=== PATIENT | male | born 1950 | race African-American/Black ===

== ENCOUNTER 2017-05-21 08:16 | Inpatient (IN) ==
[2017-05-21 08:56] LABS: Basophils % 0.1 % (0.0-0.8); Hematocrit 25.1 VOL% (42.0-52.0); Hemoglobin 8.4 GM/DL (14.0-18.0); Immature Granulocytes % 6.4 %; Immature Granulocytes Absolute 0.62 #; Lymphocytes # 0.3 10*3/uL (1.4-4.0); Lymphocytes % 3.2 % (21.2-54.2); Mean Corpuscular HGB Conc 33.5 GM/DL (32-36); Mean Corpuscular Hemoglobin 26 PG (27-34); Mean Corpuscular Volume 78.7 FL (87-102); Monocytes # 0.2 10*3/uL (0.11-0.8); Monocytes % 2.1 % (1.7-12.7); Neutrophils # 8.6 10*3/uL (1.4-7.4); Neutrophils % 88.2 % (38.7-73.9); Platelet Count 54 T/CUMM (130-400); Red Blood Count 3.19 MC/CUMM (3.8-5.5); Red Cell Distribution Width 16.7 % (9.3-17.3); White Blood Count 9.7 T/CUMM (4-12)
[2017-05-21] MEDS ORDERED: GENTAMICIN INJ 120 MG in PREMIX 1 EACH IV SCH (09:00)
[2017-05-21 09:23] LABS: Lactic Acid 2.5 MMOL/L (0.4-2.0)
[2017-05-21 09:28] LABS: Alanine Aminotransferase 11 U/L (16-61); Albumin 2.8 G/DL (3.4-5.0); Alkaline Phosphatase 69 U/L (45-117); Aspartate Amino Transferase 26 U/L (0-37); Blood Urea Nitrogen 34 MG/DL (7-18); Calcium 8.2 MG/DL (8.5-10.1); Glucose 117 MG/DL (74-106); Potassium 4.1 MMOL/L (3.5-5.1); Sodium 136 MMOL/L (136-145); Total Protein 7.2 G/DL (6.4-8.3)
[2017-05-21] MEDS ORDERED: VANCOMYCIN INJ 1,500 MG in SODIUM CHLORIDE 0.9% 500 ML IV SCH (09:30)
[2017-05-21 09:35] LABS: Band Neutrophils 2 % (0-10); Hypochromasia 1+; Lymphocytes 2 % (20-55); Microcytosis 1+; Ovalocytes Slight; Segmented Neutrophils 94 % (50-85); Total Cells Counted 100
[2017-05-21 09:36] LABS: Platelet Estimate Decreased; Tear Drop Cells Slight
[2017-05-21 10:17] LABS: INR 1.3; PT Patient Result 13.7 SECS
[2017-05-21 10:37] LABS: Apearance,Urine Slightly Hazy (Clear); Bacteria,Urine Occasional /HPF (Few); Bilirubin,Urine Negative (Negative); Blood, Urine Large mg/dL (Negative); Glucose,Urine (UA) Negative (Negative); Ketones,Urine 5 mg/dL (Negative); Mucus,Urine Occasional /LPF (Occasional); Nitrite,Urine Negative (Negative); Protein,Urine >=500 MG/DL; RBC,Urine 975 /HPF (0-4); Squamous Epithelial Cell,Urine Occasional /HPF (0-10); Urine Color Yellow (Yellow); Urine Specific Gravity 1.017 (1.001-1.035); WBC,Urine 49 /HPF (0-6)
[2017-05-21] MEDS ORDERED: ONDANSETRON 4 MG/2 ML VIAL IV PRN (10:56)
[2017-05-21] MEDS ORDERED: VANCOMYCIN INJ 750 MG in SODIUM CHLORIDE 0.9% 250 ML IV PRN (12:53)
[2017-05-21] MEDS: RIFAXIMIN 550 MG TABLET PO SCH (20:52)
[2017-05-21] MEDS: TACROLIMUS 0.5 MG CAPSULE PO SCH (20:53)
[2017-05-21] MEDS: DOXAZOSIN 4 MG TABLET PO SCH (20:53)
[2017-05-21] MEDS: MYCOPHENOLATE MOFETIL 250 MG CAPSULE PO SCH (20:53)
[2017-05-21] MEDS: METOPROLOL SUCCINATE XL 25 MG TABLET PO SCH (20:53)
[2017-05-21] MEDS ORDERED: VANCOMYCIN INJ 1,500 MG in SODIUM CHLORIDE 0.9% 250 ML IV SCH (21:00)
[2017-05-21] MEDS: ZALEPLON 5 MG CAPSULE PO PRN (22:03)
[2017-05-22 06:27] LABS: Basophils % 0.1 % (0.0-0.8); Eosinophils % 0.5 % (0.00-10.9); Hematocrit 21.4 VOL% (42.0-52.0); Hemoglobin 6.9 GM/DL (14.0-18.0); Immature Granulocytes % 4.1 %; Immature Granulocytes Absolute 0.33 #; Lymphocytes # 0.4 10*3/uL (1.4-4.0); Lymphocytes % 4.8 % (21.2-54.2); Mean Corpuscular HGB Conc 32.2 GM/DL (32-36); Mean Corpuscular Hemoglobin 26 PG (27-34); Mean Corpuscular Volume 81.1 FL (87-102); Monocytes # 0.6 10*3/uL (0.11-0.8); Monocytes % 7.8 % (1.7-12.7); Neutrophils # 6.7 10*3/uL (1.4-7.4); Neutrophils % 82.7 % (38.7-73.9); Platelet Count 61 T/CUMM (130-400); Red Blood Count 2.64 MC/CUMM (3.8-5.5); White Blood Count 8.1 T/CUMM (4-12)
[2017-05-22 06:35] LABS: INR 1.2; PT Patient Result 12.7 SECS; Partial Thromboplastin Time 38.2 SECS (0-40)
[2017-05-22 06:56] LABS: Calcium 7.9 MG/DL (8.5-10.1); Osmolality,Calculated 283.8 MOS/KG (273-304); Potassium 4.5 MMOL/L (3.5-5.1)
[2017-05-22 07:02] LABS: Hypochromasia 1+; Lymphocytes 5 % (20-55); Microcytosis 1+; Ovalocytes Slight; Segmented Neutrophils 87 % (50-85); Target Cells Slight; Total Cells Counted 100
[2017-05-22 07:03] LABS: Platelet Estimate Decreased
[2017-05-22] MEDS ORDERED: SODIUM CHLORIDE 0.9% 1,000 ML IV PRN ×2 (07:30→09:07)
[2017-05-22] MEDS: TACROLIMUS 0.5 MG CAPSULE PO SCH ×2 (09:56→20:38)
[2017-05-22] MEDS: ACETAMINOPHEN 325 MG TABLET PO PRN (09:57)
[2017-05-22] MEDS: MYCOPHENOLATE MOFETIL 250 MG CAPSULE PO SCH ×2 (09:57→20:38)
[2017-05-22] MEDS: PANTOPRAZOLE 40 MG TABLET PO SCH (09:57)
[2017-05-22] MEDS: DOXAZOSIN 4 MG TABLET PO SCH ×2 (09:58→20:38)
[2017-05-22] MEDS: MULTIVITAMIN (CENTRUM) TABLET PO SCH (09:58)
[2017-05-22] MEDS: RIFAXIMIN 550 MG TABLET PO SCH ×2 (09:58→20:38)
[2017-05-22] MEDS: METOPROLOL SUCCINATE XL 50 MG TABLET PO SCH (09:58)
[2017-05-22] MEDS: LAMIVUDINE 150 MG PO SCH (10:00)
[2017-05-22] MEDS: METOPROLOL SUCCINATE XL 25 MG TABLET PO SCH (20:38)
[2017-05-22] MEDS: ZALEPLON 5 MG CAPSULE PO PRN (20:38)
[2017-05-23 05:48] LABS: Basophils % 0.1 % (0.0-0.8); Eosinophils % 0.4 % (0.00-10.9); Hematocrit 24.6 VOL% (42.0-52.0); Hemoglobin 8.2 GM/DL (14.0-18.0); Immature Granulocytes % 4.7 %; Immature Granulocytes Absolute 0.36 #; Lymphocytes # 0.4 10*3/uL (1.4-4.0); Lymphocytes % 5.2 % (21.2-54.2); Mean Corpuscular HGB Conc 33.3 GM/DL (32-36); Mean Corpuscular Hemoglobin 27 PG (27-34); Mean Corpuscular Volume 81.7 FL (87-102); Monocytes # 0.6 10*3/uL (0.11-0.8); Monocytes % 7.7 % (1.7-12.7); Neutrophils # 6.3 10*3/uL (1.4-7.4); Neutrophils % 81.9 % (38.7-73.9); Platelet Count 59 T/CUMM (130-400); Red Blood Count 3.01 MC/CUMM (3.8-5.5); Red Cell Distribution Width 16.1 % (9.3-17.3); White Blood Count 7.7 T/CUMM (4-12)
[2017-05-23 06:05] LABS: Calcium 7.6 MG/DL (8.5-10.1); Osmolality,Calculated 280.2 MOS/KG (273-304); Potassium 4.3 MMOL/L (3.5-5.1)
[2017-05-23 06:08] LABS: Albumin 2.6 G/DL (3.4-5.0); Bilirubin,Direct 0.29 MG/DL (0.0-0.20); Bilirubin,Indirect 0.9 MG/DL (0.0-1.0); Bilirubin,Total 1.2 MG/DL (0.2-1.0); Total Protein 5.8 G/DL (6.4-8.3)
[2017-05-23 07:06] LABS: Giant Platelets Few; Hypochromasia 1+; Lymphocytes 4 % (20-55); Microcytosis Slight; Ovalocytes Slight; Platelet Estimate Decreased; Segmented Neutrophils 91 % (50-85); Total Cells Counted 100
[2017-05-23] MEDS: MYCOPHENOLATE MOFETIL 250 MG CAPSULE PO SCH ×2 (08:35→21:27)
[2017-05-23] MEDS: LAMIVUDINE 150 MG PO SCH (08:36)
[2017-05-23] MEDS: MULTIVITAMIN (CENTRUM) TABLET PO SCH (08:36)
[2017-05-23] MEDS: PANTOPRAZOLE 40 MG TABLET PO SCH (08:36)
[2017-05-23] MEDS: DOXAZOSIN 4 MG TABLET PO SCH ×2 (08:36→21:27)
[2017-05-23] MEDS: TACROLIMUS 0.5 MG CAPSULE PO SCH ×2 (08:36→21:27)
[2017-05-23] MEDS: RIFAXIMIN 550 MG TABLET PO SCH ×2 (08:36→21:27)
[2017-05-23] MEDS: METOPROLOL SUCCINATE XL 50 MG TABLET PO SCH (08:36)
[2017-05-23] MEDS: ACETAMINOPHEN 325 MG TABLET PO PRN (08:41)
[2017-05-23 16:24] LABS: Basophils % 0.1 % (0.0-0.8); Eosinophils % 0.4 % (0.00-10.9); Hematocrit 27.7 VOL% (42.0-52.0); Hemoglobin 9.4 GM/DL (14.0-18.0); Immature Granulocytes % 6.2 %; Immature Granulocytes Absolute 0.49 #; Lymphocytes # 0.4 10*3/uL (1.4-4.0); Mean Corpuscular HGB Conc 33.9 GM/DL (32-36); Mean Corpuscular Hemoglobin 28 PG (27-34); Mean Corpuscular Volume 81.2 FL (87-102); Monocytes # 0.6 10*3/uL (0.11-0.8); Monocytes % 7.4 % (1.7-12.7); Neutrophils # 6.4 10*3/uL (1.4-7.4); Neutrophils % 80.9 % (38.7-73.9); Platelet Count 64 T/CUMM (130-400); Red Blood Count 3.41 MC/CUMM (3.8-5.5); Red Cell Distribution Width 16.4 % (9.3-17.3); White Blood Count 7.9 T/CUMM (4-12)
[2017-05-23 17:14] LABS: Band Neutrophils 3 % (0-10); Lymphocytes 5 % (20-55); Myelocytes 1 %; Segmented Neutrophils 88 % (50-85); Total Cells Counted 100
[2017-05-23 17:15] LABS: Anisocytosis 1+; Platelet Estimate Decreased; Tear Drop Cells Few
[2017-05-23] MEDS ORDERED: PROMETHAZINE 25 MG/1 ML VIAL IM ONE (18:56)
[2017-05-23] MEDS ORDERED: MEPERIDINE 50 MG/1 ML VIAL IM ONE (18:56)
[2017-05-23] MEDS: ZALEPLON 5 MG CAPSULE PO PRN (21:27)
[2017-05-23] MEDS: METOPROLOL SUCCINATE XL 25 MG TABLET PO SCH (21:27)
[2017-05-24 06:39] LABS: Basophils % 0.2 % (0.0-0.8); Eosinophils # 0.1 10*3/uL (0.0-0.87); Eosinophils % 1.2 % (0.00-10.9); Hematocrit 25.2 VOL% (42.0-52.0); Hemoglobin 8.3 GM/DL (14.0-18.0); Immature Granulocytes % 4.5 %; Immature Granulocytes Absolute 0.26 #; Lymphocytes # 0.4 10*3/uL (1.4-4.0); Lymphocytes % 7.5 % (21.2-54.2); Mean Corpuscular HGB Conc 32.9 GM/DL (32-36); Mean Corpuscular Hemoglobin 27 PG (27-34); Mean Corpuscular Volume 81.3 FL (87-102); Monocytes # 0.6 10*3/uL (0.11-0.8); Monocytes % 9.4 % (1.7-12.7); Neutrophils # 4.5 10*3/uL (1.4-7.4); Neutrophils % 77.2 % (38.7-73.9); Platelet Count 65 T/CUMM (130-400); Red Cell Distribution Width 16.3 % (9.3-17.3); White Blood Count 5.8 T/CUMM (4-12)
[2017-05-24 07:05] LABS: Calcium 7.8 MG/DL (8.5-10.1); Potassium 4.1 MMOL/L (3.5-5.1)
[2017-05-24 07:06] LABS: Albumin 2.7 G/DL (3.4-5.0); Bilirubin,Total 0.9 MG/DL (0.2-1.0); Calcium 7.8 MG/DL (8.5-10.1); Magnesium 2.5 MG/DL (1.8-2.4); Osmolality,Calculated 284.1 MOS/KG (273-304); Potassium 4.1 MMOL/L (3.5-5.1); Total Protein 5.9 G/DL (6.4-8.3)
[2017-05-24] MEDS ORDERED: cefTAZidime 1,000 MG in SYRINGE 1 EACH IV SCH (08:00)
[2017-05-24] MEDS: LAMIVUDINE 150 MG PO SCH (08:31)
[2017-05-24] MEDS: DOXAZOSIN 4 MG TABLET PO SCH ×2 (08:31→20:08)
[2017-05-24] MEDS: TACROLIMUS 0.5 MG CAPSULE PO SCH ×2 (08:32→20:08)
[2017-05-24] MEDS: RIFAXIMIN 550 MG TABLET PO SCH ×2 (08:32→20:09)
[2017-05-24] MEDS: MYCOPHENOLATE MOFETIL 250 MG CAPSULE PO SCH ×2 (08:32→20:08)
[2017-05-24] MEDS: MULTIVITAMIN (CENTRUM) TABLET PO SCH (08:33)
[2017-05-24] MEDS: PANTOPRAZOLE 40 MG TABLET PO SCH (08:33)
[2017-05-24] MEDS: METOPROLOL SUCCINATE XL 50 MG TABLET PO SCH (08:33)
[2017-05-24] MEDS: ALBUTEROL 2.5 MG/3 ML NEB RESP TX PRN (08:53)
[2017-05-24] MEDS ORDERED: HEPARIN 10,000 UNIT/10 ML VIAL IV PRN (10:52)
[2017-05-24] MEDS ORDERED: GENTAMICIN INJ 100 MG in PREMIX 1 EACH IV PRN (16:00)
[2017-05-24] MEDS: ACETAMINOPHEN 325 MG TABLET PO PRN (18:03)
[2017-05-24] MEDS: ZALEPLON 5 MG CAPSULE PO PRN (20:08)
[2017-05-24] MEDS: METOPROLOL SUCCINATE XL 25 MG TABLET PO SCH (20:08)
[2017-05-24] MEDS: METHOCARBAMOL 500 MG TABLET PO PRN (20:09)
[2017-05-25] MEDS: PANTOPRAZOLE 40 MG TABLET PO SCH (08:05)
[2017-05-25] MEDS: DOXAZOSIN 4 MG TABLET PO SCH ×2 (08:05→21:25)
[2017-05-25] MEDS: MULTIVITAMIN (CENTRUM) TABLET PO SCH (08:05)
[2017-05-25] MEDS: METHOCARBAMOL 500 MG TABLET PO PRN ×2 (08:05→17:45)
[2017-05-25] MEDS: MYCOPHENOLATE MOFETIL 250 MG CAPSULE PO SCH ×2 (08:06→21:22)
[2017-05-25] MEDS: TACROLIMUS 0.5 MG CAPSULE PO SCH ×2 (08:06→21:22)
[2017-05-25] MEDS: METOPROLOL SUCCINATE XL 50 MG TABLET PO SCH (08:06)
[2017-05-25] MEDS: RIFAXIMIN 550 MG TABLET PO SCH ×2 (08:06→21:25)
[2017-05-25] MEDS: LAMIVUDINE 150 MG PO SCH (09:08)
[2017-05-25] MEDS ORDERED: cefTRIAXone 1,000 MG in SODIUM CHLORIDE 0.9% 100 ML IV SCH (09:30)
[2017-05-25] MEDS: cefTRIAXone 2,000 MG in SYRINGE 1 EACH IV SCH (14:17)
[2017-05-25] MEDS: ZALEPLON 5 MG CAPSULE PO SCH (21:26)
[2017-05-25] MEDS: METOPROLOL SUCCINATE XL 25 MG TABLET PO SCH (21:26)
[2017-05-26] MEDS: METHOCARBAMOL 500 MG TABLET PO PRN ×2 (04:39→17:28)
[2017-05-26] MEDS: ALBUTEROL 2.5 MG/3 ML NEB RESP TX PRN (04:42)
[2017-05-26 05:39] LABS: Basophils % 0.2 % (0.0-0.8); Eosinophils # 0.1 10*3/uL (0.0-0.87); Eosinophils % 2.4 % (0.00-10.9); Hematocrit 24.9 VOL% (42.0-52.0); Hemoglobin 8.3 GM/DL (14.0-18.0); Immature Granulocytes % 4.5 %; Immature Granulocytes Absolute 0.21 #; Lymphocytes # 0.5 10*3/uL (1.4-4.0); Lymphocytes % 9.7 % (21.2-54.2); Mean Corpuscular HGB Conc 33.3 GM/DL (32-36); Mean Corpuscular Hemoglobin 27 PG (27-34); Mean Corpuscular Volume 80.3 FL (87-102); Monocytes # 0.5 10*3/uL (0.11-0.8); Monocytes % 10.5 % (1.7-12.7); Neutrophils # 3.4 10*3/uL (1.4-7.4); Neutrophils % 72.7 % (38.7-73.9); Platelet Count 73 T/CUMM (130-400); Red Cell Distribution Width 16.7 % (9.3-17.3); White Blood Count 4.7 T/CUMM (4-12)
[2017-05-26 06:01] LABS: Hypochromasia 1+; Platelet Estimate Decreased
[2017-05-26 06:02] LABS: Giant Platelets Few; Microcytosis Slight; Ovalocytes Slight
[2017-05-26 06:53] LABS: Albumin 2.5 G/DL (3.4-5.0); Bilirubin,Total 0.6 MG/DL (0.2-1.0); Calcium 7.7 MG/DL (8.5-10.1)
[2017-05-26 06:54] LABS: Magnesium 2.3 MG/DL (1.8-2.4); Osmolality,Calculated 283.7 MOS/KG (273-304); Potassium 4.3 MMOL/L (3.5-5.1)
[2017-05-26] MEDS: LAMIVUDINE 150 MG PO SCH (08:51)
[2017-05-26] MEDS: DOXAZOSIN 4 MG TABLET PO SCH ×2 (08:52→21:12)
[2017-05-26] MEDS: MYCOPHENOLATE MOFETIL 250 MG CAPSULE PO SCH ×2 (08:53→21:11)
[2017-05-26] MEDS: TACROLIMUS 0.5 MG CAPSULE PO SCH ×2 (08:53→21:10)
[2017-05-26] MEDS: MULTIVITAMIN (CENTRUM) TABLET PO SCH (08:53)
[2017-05-26] MEDS: METOPROLOL SUCCINATE XL 50 MG TABLET PO SCH (08:54)
[2017-05-26] MEDS: PANTOPRAZOLE 40 MG TABLET PO SCH (08:54)
[2017-05-26] MEDS: RIFAXIMIN 550 MG TABLET PO SCH ×2 (08:54→21:11)
[2017-05-26] MEDS: cefTRIAXone 2,000 MG in SYRINGE 1 EACH IV SCH (12:13)
[2017-05-26] MEDS: ZALEPLON 5 MG CAPSULE PO SCH (21:11)
[2017-05-26] MEDS: METOPROLOL SUCCINATE XL 25 MG TABLET PO SCH (21:12)
[2017-05-27] MEDS: METHOCARBAMOL 500 MG TABLET PO PRN ×3 (04:29→17:47)
[2017-05-27 06:50] LABS: Basophils % 0.2 % (0.0-0.8); Eosinophils # 0.1 10*3/uL (0.0-0.87); Eosinophils % 1.4 % (0.00-10.9); Hematocrit 27.7 VOL% (42.0-52.0); Hemoglobin 9.2 GM/DL (14.0-18.0); Immature Granulocytes % 4.2 %; Immature Granulocytes Absolute 0.18 #; Lymphocytes # 0.4 10*3/uL (1.4-4.0); Lymphocytes % 9.5 % (21.2-54.2); Mean Corpuscular HGB Conc 33.2 GM/DL (32-36); Mean Corpuscular Hemoglobin 27 PG (27-34); Mean Corpuscular Volume 82.4 FL (87-102); Monocytes # 0.4 10*3/uL (0.11-0.8); Monocytes % 8.6 % (1.7-12.7); Neutrophils # 3.3 10*3/uL (1.4-7.4); Neutrophils % 76.1 % (38.7-73.9); Platelet Count 88 T/CUMM (130-400); Red Blood Count 3.36 MC/CUMM (3.8-5.5); White Blood Count 4.3 T/CUMM (4-12)
[2017-05-27 07:15] LABS: Giant Platelets Few; Hypochromasia 1+; Lymphocytes 6 % (20-55); Microcytosis Slight; Ovalocytes Slight; Platelet Estimate Decreased; Segmented Neutrophils 81 % (50-85); Total Cells Counted 100
[2017-05-27 07:23] LABS: Albumin 2.8 G/DL (3.4-5.0); Bilirubin,Total 0.7 MG/DL (0.2-1.0); Calcium 8.2 MG/DL (8.5-10.1); Magnesium 2.3 MG/DL (1.8-2.4); Osmolality,Calculated 280.5 MOS/KG (273-304); Total Protein 6.4 G/DL (6.4-8.3)
[2017-05-27] MEDS: DOXAZOSIN 4 MG TABLET PO SCH (08:33)
[2017-05-27] MEDS: TACROLIMUS 0.5 MG CAPSULE PO SCH (08:33)
[2017-05-27] MEDS: METOPROLOL SUCCINATE XL 50 MG TABLET PO SCH (08:33)
[2017-05-27] MEDS: cefTRIAXone 2,000 MG in SYRINGE 1 EACH IV SCH (08:34)
[2017-05-27] MEDS ORDERED: fentaNYL 100 MCG/2 ML VIAL ONE (10:43)
[2017-05-27] MEDS ORDERED: PROPOFOL 200 MG/20 ML VIAL IV ONE (10:43)
[2017-05-27] MEDS ORDERED: MIDAZOLAM 2 MG/2 ML VIAL ONE (10:44)
[2017-05-27] MEDS: PANTOPRAZOLE 40 MG TABLET PO SCH (11:25)
[2017-05-27] MEDS: LAMIVUDINE 150 MG PO SCH (11:25)
[2017-05-27] MEDS: RIFAXIMIN 550 MG TABLET PO SCH (11:26)
[2017-05-27] MEDS: MULTIVITAMIN (CENTRUM) TABLET PO SCH (11:26)
[2017-05-27] MEDS: MYCOPHENOLATE MOFETIL 250 MG CAPSULE PO SCH (11:26)
[2017-05-27] MEDS ORDERED: LORazepam 2 MG/1 ML VIAL IV ONE (18:21)
[2017-05-27 20:27] VITALS: BP 171/91
== END 2017-05-27 20:14 | disposition hospice, home (50) | DRG 252 ==
LOC: EDUNIT# → EDBD → N.ED 08:16 → N.EDINP 09:31 → SUATTDRO 09:31 → N.2E 10:04
PROVIDERS: ADMIT Internal Medicine; ATTEND Internal Medicine

== ENCOUNTER 2017-11-12 08:14 | Inpatient (IN) ==
[2017-11-16 08:31] VITALS: BP 145/65
== END 2017-11-16 13:16 | disposition home health service (06) | DRG 907 ==
LOC: N.ED 08:14 → N.EDINP 08:14 → SUATTDRO 12:09 → N.5E 12:58
PROVIDERS: ADMIT Hospitalist; ATTEND Emergency Medicine

== ENCOUNTER 2019-07-18 11:24 | Observation (INO) ==
[2019-07-18 12:14] LABS: Basophils % 0.2 % (0.0-0.8); Eosinophils # 0.1 10*3/uL (0.0-0.87); Eosinophils % 1.1 % (0.00-10.9); Hematocrit 32.6 VOL% (42.0-52.0); Hemoglobin 10.7 GM/DL (14.0-18.0); Immature Granulocytes % 0.5 %; Immature Granulocytes Absolute 0.02 #; Lymphocytes # 0.5 10*3/uL (1.4-4.0); Lymphocytes % 11.5 % (21.2-54.2); Mean Corpuscular HGB Conc 32.8 GM/DL (32-36); Mean Corpuscular Volume 90.3 FL (87-102); Monocytes % 7.8 % (1.7-12.7); Neutrophils % 78.9 % (38.7-73.9); Red Blood Count 3.61 MC/CUMM (3.8-5.5); Red Cell Distribution Width 16.2 % (9.3-17.3); White Blood Count 4.4 T/CUMM (4-12)
[2019-07-18 12:16] LABS: Platelet Count 46 T/CUMM (130-400)
[2019-07-18 12:32] LABS: INR 1.1; PT Patient Result 11.4 SECS (9.6-12.2); Partial Thromboplastin Time 27.8 SECS (20.8-36.0)
[2019-07-18 12:38] LABS: Albumin 3.6 G/DL (3.4-5.0); Bilirubin,Total 0.9 MG/DL (0.2-1.0); Calcium 8.2 MG/DL (8.5-10.1); Osmolality,Calculated 274.4 MOS/KG (273-304); Total Protein 6.6 G/DL (6.4-8.3)
[2019-07-18 12:49] LABS: Anisocytosis Slight
[2019-07-18 12:50] LABS: Platelet Estimate Decreased
[2019-07-18] MEDS ORDERED: ENOXAPARIN 40 MG/0.4 ML SYRINGE SUBCUT STA (13:28)
[2019-07-18] MEDS ORDERED: ASPIRIN CHEW 81 MG TABLET PO STA (13:28)
[2019-07-18] MEDS ORDERED: METOPROLOL TARTRATE 50 MG TABLET PO STA (13:55)
[2019-07-18] MEDS ORDERED: amLODIPine 5 MG TABLET PO STA (13:55)
[2019-07-18] MEDS ORDERED: lisinopriL 10 MG TABLET PO STA (13:55)
[2019-07-18] MEDS ORDERED: KETOROLAC 30 MG/1 ML VIAL IV STA (13:57)
[2019-07-18] MEDS ORDERED: MORPHINE 4 MG/1 ML VIAL IV STA (14:00)
[2019-07-18] MEDS ORDERED: ONDANSETRON 4 MG/2 ML VIAL IV STA (14:00)
[2019-07-18] MEDS ORDERED: lisinopriL 20 MG TABLET PO STA (14:02)
[2019-07-18] MEDS ORDERED: MORPHINE 4 MG/1 ML VIAL IV PRN (14:50)
[2019-07-18] MEDS ORDERED: ACETAMINOPHEN 325 MG TABLET PO PRN (14:50)
[2019-07-18] MEDS ORDERED: BISACODYL 5 MG TABLET PO PRN (14:50)
[2019-07-18] MEDS ORDERED: PROMETHAZINE 25 MG/1 ML VIAL IM PRN (14:50)
[2019-07-18] MEDS ORDERED: ONDANSETRON 4 MG/2 ML VIAL IV PRN (14:50)
[2019-07-18] MEDS: DOXAZOSIN 4 MG TABLET PO SCH (15:12)
[2019-07-18] MEDS: hydrALAZINE 20 MG/1 ML VIAL IV PRN (16:45)
[2019-07-18 17:27] LABS: Troponin I 0.024 NG/ML (0.00-0.045)
[2019-07-18] MEDS: KETOROLAC 15 MG/1 ML VIAL IV SCH (20:52)
[2019-07-18] MEDS: METAXALONE 800 MG TABLET PO SCH (20:55)
[2019-07-18] MEDS: ZALEPLON 5 MG CAPSULE PO PRN (23:35)
[2019-07-19] MEDS: KETOROLAC 15 MG/1 ML VIAL IV SCH ×4 (02:12→21:08)
[2019-07-19 05:47] LABS: Basophils % 0.2 % (0.0-0.8); Eosinophils % 0.6 % (0.00-10.9); Hematocrit 27.7 VOL% (42.0-52.0); Hemoglobin 9.4 GM/DL (14.0-18.0); Immature Granulocytes % 0.4 %; Immature Granulocytes Absolute 0.02 #; Lymphocytes # 0.6 10*3/uL (1.4-4.0); Lymphocytes % 11.9 % (21.2-54.2); Mean Corpuscular HGB Conc 33.9 GM/DL (32-36); Mean Corpuscular Volume 88.8 FL (87-102); Monocytes % 7.9 % (1.7-12.7); Red Blood Count 3.12 MC/CUMM (3.8-5.5); Red Cell Distribution Width 16.4 % (9.3-17.3)
[2019-07-19 05:52] LABS: Platelet Count 47 T/CUMM (130-400)
[2019-07-19 06:20] LABS: Albumin 3.1 G/DL (3.4-5.0); Bilirubin,Total 1.1 MG/DL (0.2-1.0); Osmolality,Calculated 275.4 MOS/KG (273-304); Risk Ratio 1.39; Thyroid Stimulating Hormone 2.44 uIU/ml (0.358-3.74); Total Protein 6.2 G/DL (6.4-8.3); VLDL CHOLESTEROL 10.2 MG/DL
[2019-07-19 06:41] LABS: Anisocytosis 1+; Hypochromasia 1+; Microcytosis 1+; Ovalocytes Slight
[2019-07-19 06:42] LABS: Platelet Estimate Decreased; Tear Drop Cells Slight
[2019-07-19] MEDS: DOXAZOSIN 4 MG TABLET PO SCH ×2 (09:02→21:11)
[2019-07-19] MEDS: oxyCODONE/ACETAMINOPHEN 5-325 MG TABLET PO PRN ×2 (11:04→16:37)
[2019-07-19] MEDS: TACROLIMUS 0.5 MG CAPSULE PO SCH ×3 (13:32→21:15)
[2019-07-19] MEDS: lisinopriL 20 MG TABLET PO SCH (13:33)
[2019-07-19] MEDS: METAXALONE 800 MG TABLET PO SCH ×3 (13:34→21:12)
[2019-07-19] MEDS: amLODIPine 10 MG TABLET PO SCH (13:34)
[2019-07-19] MEDS: LIDOCAINE 5% PATCH TRANSDERM SCH (13:38)
[2019-07-19] MEDS: hydrALAZINE 20 MG/1 ML VIAL IV PRN (16:37)
[2019-07-19] MEDS ORDERED: MORPHINE 4 MG/1 ML VIAL IV ONE (18:49)
[2019-07-19] MEDS ORDERED: AMOXICILLIN/CLAV 500 MG TABLET PO SCH (21:00)
[2019-07-19] MEDS: RIFAXIMIN 550 MG TABLET PO SCH (21:12)
[2019-07-19] MEDS: METOPROLOL SUCCINATE XL 25 MG TABLET PO SCH (21:12)
[2019-07-19] MEDS: MORPHINE 4 MG/1 ML VIAL IV PRN (22:50)
[2019-07-19] MEDS: ZALEPLON 5 MG CAPSULE PO PRN (22:53)
[2019-07-20] MEDS: MORPHINE 4 MG/1 ML VIAL IV PRN (04:46)
[2019-07-20 05:28] LABS: Basophils % 0.2 % (0.0-0.8); Eosinophils % 0.6 % (0.00-10.9); Hematocrit 29.7 VOL% (42.0-52.0); Hemoglobin 10.1 GM/DL (14.0-18.0); Immature Granulocytes % 2.7 %; Immature Granulocytes Absolute 0.17 #; Lymphocytes # 0.6 10*3/uL (1.4-4.0); Lymphocytes % 9.4 % (21.2-54.2); Mean Corpuscular Volume 88.9 FL (87-102); Monocytes % 9.4 % (1.7-12.7); Neutrophils % 77.7 % (38.7-73.9); Platelet Count 58 T/CUMM (130-400); Red Blood Count 3.34 MC/CUMM (3.8-5.5); White Blood Count 6.2 T/CUMM (4-12)
[2019-07-20 06:11] LABS: Band Neutrophils 4 % (0-10); Eosinophils 1 % (0-10); Lymphocytes 14 % (20-55); Segmented Neutrophils 74 % (50-85); Total Cells Counted 100
[2019-07-20 06:12] LABS: Anisocytosis 1+; Calcium 8.2 MG/DL (8.5-10.1); Osmolality,Calculated 271.4 MOS/KG (273-304); Platelet Estimate Decreased; Target Cells 1+
[2019-07-20] MEDS: oxyCODONE/ACETAMINOPHEN 5-325 MG TABLET PO PRN (07:29)
[2019-07-20] MEDS ORDERED: oxyCODONE/ACETAMINOPHEN 5-325 MG TABLET PO PRN (08:30)
[2019-07-20] MEDS ORDERED: INDOMETHACIN 50 MG CAPSULE PO SCH (09:00)
[2019-07-20] MEDS: TACROLIMUS 0.5 MG CAPSULE PO SCH ×2 (11:56→20:33)
[2019-07-20] MEDS: METAXALONE 800 MG TABLET PO SCH ×3 (11:57→20:31)
[2019-07-20] MEDS: METOPROLOL SUCCINATE XL 50 MG TABLET PO SCH (11:57)
[2019-07-20] MEDS: RIFAXIMIN 550 MG TABLET PO SCH ×2 (11:57→20:31)
[2019-07-20] MEDS: lisinopriL 20 MG TABLET PO SCH (11:57)
[2019-07-20] MEDS: amLODIPine 10 MG TABLET PO SCH (11:58)
[2019-07-20] MEDS: LIDOCAINE 5% PATCH TRANSDERM SCH (11:58)
[2019-07-20] MEDS: MULTIVITAMIN (CENTRUM) TABLET PO SCH (11:58)
[2019-07-20] MEDS: DOXAZOSIN 4 MG TABLET PO SCH ×2 (11:58→20:31)
[2019-07-20] MEDS: EPIVIR PO SCH (12:09)
[2019-07-20 13:38] LABS: Albumin 2.8 G/DL (3.4-5.0); Total Protein 6.3 G/DL (6.4-8.3)
[2019-07-20 14:01] LABS: Total Protein,Body Fluid 2.6 G/DL
[2019-07-20] MEDS: ALBUTEROL/IPRATROPIUM 3 ML NEB RESP TX SCH ×2 (16:31→19:18)
[2019-07-20] MEDS: METOPROLOL SUCCINATE XL 25 MG TABLET PO SCH (20:31)
[2019-07-20] MEDS ORDERED: AMOXICILLIN/CLAV 500 MG TABLET PO SCH (21:00)
[2019-07-21] MEDS: ALBUTEROL/IPRATROPIUM 3 ML NEB RESP TX SCH ×2 (00:56→07:04)
[2019-07-21] MEDS: LIDOCAINE 5% PATCH TRANSDERM SCH (09:18)
[2019-07-21] MEDS: METAXALONE 800 MG TABLET PO SCH (09:21)
[2019-07-21] MEDS: TACROLIMUS 0.5 MG CAPSULE PO SCH (09:21)
[2019-07-21] MEDS: DOXAZOSIN 4 MG TABLET PO SCH (09:22)
[2019-07-21] MEDS: METOPROLOL SUCCINATE XL 50 MG TABLET PO SCH (09:22)
[2019-07-21] MEDS: amLODIPine 10 MG TABLET PO SCH (09:22)
[2019-07-21] MEDS: lisinopriL 20 MG TABLET PO SCH (09:22)
[2019-07-21] MEDS: MULTIVITAMIN (CENTRUM) TABLET PO SCH (09:22)
[2019-07-21] MEDS: RIFAXIMIN 550 MG TABLET PO SCH (09:22)
[2019-07-21] MEDS: EPIVIR PO SCH (09:23)
[2019-07-21 12:20] VITALS: BP 169/80
== END 2019-07-21 12:30 | disposition home or self-care (01) ==
LOC: N.EDINP 11:24 → N.ED 11:24 → SUATTDRO 14:50 → N.2E 15:40
PROVIDERS: ADMIT Internal Medicine; ATTEND Internal Medicine Cardiovascular Disease

== ENCOUNTER 2019-07-26 03:08 | Inpatient (IN) ==
[2019-07-26] MEDS ORDERED: methylPREDNISolone SOD SUC 125 MG/2 ML VIAL IV STA (03:37)
[2019-07-26] MEDS ORDERED: ALBUTEROL/IPRATROPIUM 3 ML NEB RESP TX STA (03:37)
[2019-07-26] MEDS ORDERED: MORPHINE 4 MG/1 ML VIAL IV STA (03:37)
[2019-07-26] MEDS ORDERED: ONDANSETRON 4 MG/2 ML VIAL IV STA (03:37)
[2019-07-26 03:55] LABS: Basophils % 0.1 % (0.0-0.8); Eosinophils # 0.1 10*3/uL (0.0-0.87); Eosinophils % 1.1 % (0.00-10.9); Hematocrit 30.1 VOL% (42.0-52.0); Hemoglobin 10.1 GM/DL (14.0-18.0); Immature Granulocytes % 1.3 %; Immature Granulocytes Absolute 0.13 #; Lymphocytes # 0.9 10*3/uL (1.4-4.0); Lymphocytes % 9.6 % (21.2-54.2); Mean Corpuscular HGB Conc 33.6 GM/DL (32-36); Mean Corpuscular Volume 86.7 FL (87-102); Mean Platelet Volume 11.8 FL (9.6-12.0); Monocytes % 9.6 % (1.7-12.7); Neutrophils % 78.3 % (38.7-73.9); Red Blood Count 3.47 MC/CUMM (3.8-5.5); Red Cell Distribution Width 16.9 % (9.3-17.3); White Blood Count 9.7 T/CUMM (4-12)
[2019-07-26 03:57] LABS: Platelet Count 93 T/CUMM (130-400)
[2019-07-26 04:08] LABS: PT Patient Result 11.1 SECS (9.6-12.2)
[2019-07-26 04:20] LABS: Albumin 2.3 G/DL (3.4-5.0); Bilirubin,Total 0.6 MG/DL (0.2-1.0); Calcium 8.6 MG/DL (8.5-10.1); Osmolality,Calculated 265.9 MOS/KG (273-304); Total Protein 6.6 G/DL (6.4-8.3)
[2019-07-26 04:37] LABS: Hypochromasia 1+; Microcytosis Slight; Ovalocytes Slight; Platelet Estimate Decreased
[2019-07-26] MEDS ORDERED: ZALEPLON 5 MG CAPSULE PO PRN ×2 (05:19→21:00)
[2019-07-26] MEDS ORDERED: ONDANSETRON 4 MG/2 ML VIAL IV PRN (05:19)
[2019-07-26] MEDS ORDERED: GLUCAGON 1 MG VIAL IM PRN (05:19)
[2019-07-26] MEDS ORDERED: DEXTROSE 50% 25 GM/50 ML SYRINGE IV PRN (05:19)
[2019-07-26] MEDS ORDERED: METHOCARBAMOL 750 MG TABLET PO PRN (06:18)
[2019-07-26] MEDS ORDERED: DIPHENOXYLATE/ATROPINE 2.5-0.025 MG TABLET PO PRN (06:18)
[2019-07-26] MEDS: ALBUTEROL/IPRATROPIUM 3 ML NEB RESP TX SCH ×3 (07:18→19:15)
[2019-07-26] MEDS: METOPROLOL SUCCINATE XL 50 MG TABLET PO SCH (08:41)
[2019-07-26] MEDS: lisinopriL 20 MG TABLET PO SCH (08:41)
[2019-07-26] MEDS: DOXAZOSIN 4 MG TABLET PO SCH ×2 (08:41→21:05)
[2019-07-26] MEDS: LAMIVUDINE 150 MG PO SCH (08:41)
[2019-07-26] MEDS: RIFAXIMIN 550 MG TABLET PO SCH ×2 (08:41→21:05)
[2019-07-26] MEDS: TACROLIMUS 0.5 MG CAPSULE PO SCH ×2 (08:42→21:05)
[2019-07-26] MEDS: MULTIVITAMIN (CENTRUM) TABLET PO SCH (08:42)
[2019-07-26] MEDS: amLODIPine 10 MG TABLET PO SCH (08:42)
[2019-07-26] MEDS: PANTOPRAZOLE 40 MG TABLET PO SCH (08:42)
[2019-07-26] MEDS: LIDOCAINE 5% PATCH TRANSDERM SCH (08:42)
[2019-07-26] MEDS: MORPHINE 4 MG/1 ML VIAL IV PRN ×2 (08:48→21:55)
[2019-07-26] MEDS: BENZONATATE 100 MG CAPSULE PO PRN ×3 (11:47→21:04)
[2019-07-26] MEDS: METOPROLOL SUCCINATE XL 25 MG TABLET PO SCH (21:05)
[2019-07-26] MEDS: AMOXICILLIN/CLAV 500 MG TABLET PO SCH (21:05)
[2019-07-27] MEDS: ALBUTEROL/IPRATROPIUM 3 ML NEB RESP TX SCH ×4 (01:14→20:00)
[2019-07-27] MEDS: BENZONATATE 100 MG CAPSULE PO PRN (03:03)
[2019-07-27 05:30] LABS: Basophils % 0.1 % (0.0-0.8); Hematocrit 25.2 VOL% (42.0-52.0); Hemoglobin 8.8 GM/DL (14.0-18.0); Immature Granulocytes % 1.3 %; Immature Granulocytes Absolute 0.15 #; Lymphocytes # 0.5 10*3/uL (1.4-4.0); Lymphocytes % 4.5 % (21.2-54.2); Mean Corpuscular HGB Conc 34.9 GM/DL (32-36); Mean Corpuscular Volume 84.6 FL (87-102); Mean Platelet Volume 10.8 FL (9.6-12.0); Monocytes % 4.8 % (1.7-12.7); Neutrophils % 89.3 % (38.7-73.9); Platelet Count 111 T/CUMM (130-400); Red Blood Count 2.98 MC/CUMM (3.8-5.5); Red Cell Distribution Width 16.9 % (9.3-17.3); White Blood Count 11.5 T/CUMM (4-12)
[2019-07-27 05:59] LABS: Band Neutrophils 1 % (0-10); Lymphocytes 4 % (20-55); Segmented Neutrophils 90 % (50-85); Total Cells Counted 100
[2019-07-27 06:00] LABS: Anisocytosis 1+; Platelet Estimate Adequate; Target Cells 1+
[2019-07-27 06:05] LABS: Albumin 2.3 G/DL (3.4-5.0); Bilirubin,Total 0.7 MG/DL (0.2-1.0); Calcium 8.7 MG/DL (8.5-10.1); Osmolality,Calculated 273.4 MOS/KG (273-304); Total Protein 6.2 G/DL (6.4-8.3)
[2019-07-27] MEDS: MORPHINE 4 MG/1 ML VIAL IV PRN ×2 (09:58→21:13)
[2019-07-27] MEDS: TACROLIMUS 0.5 MG CAPSULE PO SCH ×2 (09:59→21:12)
[2019-07-27] MEDS: DOXAZOSIN 4 MG TABLET PO SCH ×2 (10:00→21:12)
[2019-07-27] MEDS: RIFAXIMIN 550 MG TABLET PO SCH ×2 (10:01→21:12)
[2019-07-27] MEDS: lisinopriL 20 MG TABLET PO SCH (10:01)
[2019-07-27] MEDS: PANTOPRAZOLE 40 MG TABLET PO SCH (10:02)
[2019-07-27] MEDS: MULTIVITAMIN (CENTRUM) TABLET PO SCH (10:02)
[2019-07-27] MEDS: LIDOCAINE 5% PATCH TRANSDERM SCH (10:02)
[2019-07-27] MEDS: LAMIVUDINE 150 MG PO SCH (10:04)
[2019-07-27] MEDS: amLODIPine 10 MG TABLET PO SCH (10:04)
[2019-07-27 10:11] LABS: Lymphocytes,Pleural Fluid 9 %; Monocytes,Pleural Fluid 1 %; Neutrophils,Pleural Fluid 90 %
[2019-07-27] MEDS: METOPROLOL SUCCINATE XL 50 MG TABLET PO SCH (10:16)
[2019-07-27 10:17] LABS: RBC,Pleural Fluid 3929 T/CUMM
[2019-07-27 10:29] LABS: Total Protein,Body Fluid 4.1 G/DL
[2019-07-27] MEDS ORDERED: ZALEPLON 5 MG CAPSULE PO PRN (10:31)
[2019-07-27] MEDS: AMOXICILLIN/CLAV 500 MG TABLET PO SCH (21:12)
[2019-07-27] MEDS: METOPROLOL SUCCINATE XL 25 MG TABLET PO SCH (21:12)
[2019-07-28] MEDS: ALBUTEROL/IPRATROPIUM 3 ML NEB RESP TX SCH ×3 (00:56→14:00)
[2019-07-28 04:41] LABS: Eosinophils # 0.1 10*3/uL (0.0-0.87); Eosinophils % 1.1 % (0.00-10.9); Hematocrit 25.1 VOL% (42.0-52.0); Hemoglobin 8.4 GM/DL (14.0-18.0); Immature Granulocytes % 0.8 %; Immature Granulocytes Absolute 0.06 #; Lymphocytes # 0.8 10*3/uL (1.4-4.0); Lymphocytes % 10.2 % (21.2-54.2); Mean Corpuscular HGB Conc 33.5 GM/DL (32-36); Mean Corpuscular Volume 86.9 FL (87-102); Mean Platelet Volume 10.1 FL (9.6-12.0); Monocytes % 5.4 % (1.7-12.7); Neutrophils % 82.5 % (38.7-73.9); Platelet Count 116 T/CUMM (130-400); Red Blood Count 2.89 MC/CUMM (3.8-5.5); Red Cell Distribution Width 17.2 % (9.3-17.3); White Blood Count 7.6 T/CUMM (4-12)
[2019-07-28 05:17] LABS: Calcium 8.3 MG/DL (8.5-10.1); Osmolality,Calculated 277.4 MOS/KG (273-304)
[2019-07-28] MEDS: TACROLIMUS 0.5 MG CAPSULE PO SCH (08:39)
[2019-07-28] MEDS: RIFAXIMIN 550 MG TABLET PO SCH (08:39)
[2019-07-28] MEDS: PANTOPRAZOLE 40 MG TABLET PO SCH (08:39)
[2019-07-28] MEDS: lisinopriL 20 MG TABLET PO SCH (08:39)
[2019-07-28] MEDS: MULTIVITAMIN (CENTRUM) TABLET PO SCH (08:40)
[2019-07-28] MEDS: amLODIPine 10 MG TABLET PO SCH (08:40)
[2019-07-28] MEDS: DOXAZOSIN 4 MG TABLET PO SCH (08:40)
[2019-07-28] MEDS: METOPROLOL SUCCINATE XL 50 MG TABLET PO SCH (08:41)
[2019-07-28] MEDS: LIDOCAINE 5% PATCH TRANSDERM SCH (08:41)
[2019-07-28] MEDS: LAMIVUDINE 150 MG PO SCH (08:52)
[2019-07-28 08:55] VITALS: BP 148/82
== END 2019-07-28 14:48 | disposition home or self-care (01) | DRG 180 ==
LOC: N.ED 03:08 → SUATTDRO 05:19 → N.EDINP 05:19 → N.5E 05:55
PROVIDERS: ADMIT Internal Medicine; ATTEND Internal Medicine

== ENCOUNTER 2019-09-04 05:51 | Observation (INO) ==
[2019-09-04 07:09] LABS: Basophils % 0.3 % (0.0-0.8); Eosinophils # 0.1 10*3/uL (0.0-0.87); Eosinophils % 2.8 % (0.00-10.9); Hemoglobin 7.6 GM/DL (14.0-18.0); Immature Granulocytes % 0.3 %; Immature Granulocytes Absolute 0.01 #; Lymphocytes # 0.9 10*3/uL (1.4-4.0); Lymphocytes % 26.2 % (21.2-54.2); Mean Corpuscular Volume 87.5 FL (87-102); Neutrophils % 62.4 % (38.7-73.9); Red Blood Count 2.63 MC/CUMM (3.8-5.5); Red Cell Distribution Width 19.1 % (9.3-17.3); White Blood Count 3.5 T/CUMM (4-12)
[2019-09-04 07:11] LABS: Platelet Count 77 T/CUMM (130-400)
[2019-09-04 07:22] LABS: Alanine Aminotransferase 10 U/L (16-61); Alkaline Phosphatase 58 U/L (45-117); Aspartate Amino Transferase 11 U/L (0-37); Blood Urea Nitrogen 60 MG/DL (7-18); Calcium 8.9 MG/DL (8.5-10.1); Estimated Glom Filtration Rate 6 ML/MIN; Ferritin 923.6 ng/ml (26-388); Glucose 88 MG/DL (74-106); Osmolality,Calculated 275.8 MOS/KG (273-304); Total Protein 7.1 G/DL (6.4-8.3); Troponin I 0.023 NG/ML (0.00-0.045)
[2019-09-04 07:39] LABS: Hypochromasia 1+; Platelet Estimate Decreased
[2019-09-04 08:01] LABS: INR 1.1; Partial Thromboplastin Time 31.3 SECS (23.9-33.8)
[2019-09-04] MEDS ORDERED: AZITHROMYCIN INJ 500 MG in SODIUM CHLORIDE 0.9% 250 ML IV STA (08:01)
[2019-09-04] MEDS ORDERED: methylPREDNISolone SOD SUC 125 MG/2 ML VIAL IV STA (08:01)
[2019-09-04 08:02] LABS: PT Patient Result 12.1 SECS (9.8-11.9)
[2019-09-04] MEDS ORDERED: ONDANSETRON 4 MG/2 ML VIAL IV PRN (10:06)
[2019-09-04] MEDS ORDERED: DEXTROSE 50% 25 GM/50 ML VIAL IV PRN (10:06)
[2019-09-04] MEDS ORDERED: hydrALAZINE 20 MG/1 ML VIAL IV PRN (10:06)
[2019-09-04] MEDS ORDERED: GLUCAGON 1 MG VIAL IM PRN (10:06)
[2019-09-04] MEDS ORDERED: BENZONATATE 100 MG CAPSULE PO PRN (10:33)
[2019-09-04] MEDS ORDERED: NON-FORMULARY MEDICATION (Albuterol Sulfate 2 PUFF) INH PRN (10:33)
[2019-09-04] MEDS ORDERED: SODIUM CHLORIDE 0.9% 1,000 ML IV PRN (10:55)
[2019-09-04] MEDS ORDERED: fentaNYL 12 MCG/HR PATCH TRANSDERM SCH (12:00)
[2019-09-04] MEDS: INSULIN LISPRO 100 UNIT/ML SUBCUT SCH ×3 (13:03→22:47)
[2019-09-04] MEDS: SEVELAMER CARBONATE 800 MG TABLET PO SCH ×2 (13:03→17:23)
[2019-09-04] MEDS ORDERED: TACROLIMUS 0.5 MG CAPSULE PO SCH (21:00)
[2019-09-04] MEDS ORDERED: METOPROLOL SUCCINATE XL 25 MG TABLET PO SCH (21:00)
[2019-09-04] MEDS ORDERED: tiZANidine 4 MG TABLET PO SCH (21:00)
[2019-09-04] MEDS: RIFAXIMIN 550 MG TABLET PO SCH (22:40)
[2019-09-04] MEDS: DOXAZOSIN 4 MG TABLET PO SCH (22:40)
[2019-09-05] MEDS ORDERED: ACETAMINOPHEN 325 MG TABLET PO PRN (04:54)
[2019-09-05 07:19] LABS: Hematocrit 24.9 VOL% (42.0-52.0); Hemoglobin 8.1 GM/DL (14.0-18.0); Immature Granulocytes % 0.4 %; Immature Granulocytes Absolute 0.01 #; Lymphocytes # 0.5 10*3/uL (1.4-4.0); Lymphocytes % 18.5 % (21.2-54.2); Mean Corpuscular HGB Conc 32.5 GM/DL (32-36); Mean Corpuscular Volume 88.6 FL (87-102); Mean Platelet Volume 10.8 FL (9.6-12.0); Monocytes % 7.6 % (1.7-12.7); Neutrophils % 73.5 % (38.7-73.9); Red Blood Count 2.81 MC/CUMM (3.8-5.5); Red Cell Distribution Width 17.9 % (9.3-17.3); White Blood Count 2.8 T/CUMM (4-12)
[2019-09-05 07:21] LABS: Platelet Count 65 T/CUMM (130-400)
[2019-09-05 07:43] LABS: Hypochromasia 1+; Platelet Estimate Decreased
[2019-09-05] MEDS: INSULIN LISPRO 100 UNIT/ML SUBCUT SCH ×2 (08:32→12:18)
[2019-09-05 08:48] LABS: Alanine Aminotransferase < 9 U/L (16-61); Albumin 2.7 G/DL (3.4-5.0); Alkaline Phosphatase 52 U/L (45-117); Aspartate Amino Transferase 9 U/L (0-37); Blood Urea Nitrogen 35 MG/DL (7-18); Calcium 8.2 MG/DL (8.5-10.1); Estimated Glom Filtration Rate 9 ML/MIN; Glucose 111 MG/DL (74-106); Osmolality,Calculated 276.2 MOS/KG (273-304); Total Protein 6.6 G/DL (6.4-8.3)
[2019-09-05] MEDS: SEVELAMER CARBONATE 800 MG TABLET PO SCH ×2 (08:52→13:28)
[2019-09-05] MEDS: RIFAXIMIN 550 MG TABLET PO SCH (08:52)
[2019-09-05] MEDS: DOXAZOSIN 4 MG TABLET PO SCH (08:53)
[2019-09-05] MEDS ORDERED: PANTOPRAZOLE 40 MG TABLET PO SCH (09:00)
[2019-09-05] MEDS ORDERED: METOPROLOL SUCCINATE XL 50 MG TABLET PO SCH (09:00)
[2019-09-05] MEDS ORDERED: MULTIVITAMIN (CENTRUM) TABLET PO SCH (09:00)
[2019-09-05] MEDS ORDERED: lisinopriL 20 MG TABLET PO SCH (09:00)
[2019-09-05] MEDS ORDERED: LAMIVUDINE 150 MG PO SCH (09:00)
[2019-09-05] MEDS ORDERED: amLODIPine 10 MG TABLET PO SCH (09:00)
[2019-09-05] MEDS ORDERED: TACROLIMUS 0.5 MG CAPSULE PO SCH (09:00)
[2019-09-05 12:21] VITALS: BP 174/64
== END 2019-09-05 13:15 | disposition home or self-care (01) ==
LOC: N.ED 05:51 → N.EDINP 05:51 → N.2E 11:08
PROVIDERS: ADMIT Internal Medicine; ATTEND Internal Medicine